=== PATIENT | male | born 1980 | race African-American/Black ===

== ENCOUNTER 2016-10-16 07:15 | Emergency (ER) | payer SELFPAY ==
[~2016-10-16] VITALS: Ht 177.8 cm; Wt 74.8 kg
[2016-10-16] MEDS ORDERED: SODIUM CHLORIDE 0.9% 1,000 ML IV ONE ×2 (07:57→08:00)
[2016-10-16] MEDS ORDERED: LORazepam 2MG/ML-1ML VIAL IV ONE (08:00)
[2016-10-16] MEDS ORDERED: PROMETHAZINE HCL 25 MG/ML 1ML IV ONE (08:00)
[2016-10-16] MEDS ORDERED: NALBUPHINE HCL 10 MG/1ml INJECTION IV ONE (08:00)
[2016-10-16] MEDS ORDERED: ASPirin 325 MG TAB PO ONE (08:00)
[2016-10-16 08:24] LABS: Basophils # (auto) 0 uL; Basophils % (auto) 0.3 % (0.0-2.0); Eosinophils # (auto) 0 uL; Eosinophils % (auto) 0.1 % (0.0-7.0); Hematocrit 43.6 % (41.0-53.0); Hemoglobin 14.4 g/dL (13.5-17.5); Lymphocytes # (auto) 1.6 uL; Lymphocytes % (auto) 15.6 % (10.0-50.0); Mean Corpuscular Hemoglobin 30.4 pg (28.0-32.0); Mean Corpuscular Hgb Conc. 32.9 g/dL (32.0-36.0); Mean Corpuscular Volume 92.3 fL (80.0-100.0); Mean Platelet Volume 9.4 fL (7.4-10.4); Monocytes # (auto) 0.7 uL; Neutrophils # (auto) 8.1 uL; Platelet Count (auto) 280 10^3/uL (140-450); Red Cell Distribution Width 13.6 % (11.6-16.0); White Blood Cell 10.5 10^3/uL (4.4-10.8)
[2016-10-16 08:46] LABS: Albumin 4.1 g/dL (3.4-5.0); Calcium 8.8 mg/dL (8.5-10.1); Magnesium 2.1 mg/dL (1.6-2.6); Potassium 3.6 mmol/L (3.5-5.1)
[2016-10-16 08:48] LABS: BUN/Creatinine Ratio 11.2
[2016-10-16 08:55] LABS: Bilirubin, Total 1.3 mg/dL (0.2-1.0); Total Protein 8.2 g/dL (6.4-8.2)
[2016-10-16 09:50] VITALS: BP 106/69
== END 2016-10-16 11:02 | disposition home or self-care (01) ==
LOC: ER 07:21
DX: R07.89 Other chest pain (principal); R11.2 Nausea with vomiting, unspecified
CPT/HCPCS: 36415; 71010; 80053; 83735; 84484; 85025; 85049; 93005; 94761; 96361; 96374; 96375; 99285; J2060; J2300; J2550; J7030

== ENCOUNTER 2019-05-14 12:09 | Emergency (ER) | payer SELFPAY ==
[~2019-05-14] VITALS: Ht 177.8 cm; Wt 72.6 kg
[2019-05-14 13:08] VITALS: BP 114/73
[2019-05-14] MEDS ORDERED: LIDOCAINE 1% HCL (LOCAL ANESTH.) INJ 20ML MDV IJ ONE (14:00)
== END 2019-05-14 14:50 | disposition home or self-care (01) ==
LOC: ER 12:11
DX: L02.31 Cutaneous abscess of buttock (principal); J45.909 Unspecified asthma, uncomplicated
CPT/HCPCS: 10060; 99283; J2001